=== PATIENT | female | born 1960 | race Caucasian/White ===

== ENCOUNTER 2023-01-15 15:40 | Observation (INO) | payer BC ==
[2023-01-15] MEDS ORDERED: Adenosine 12 MG/4 ML SDV IVPUSH ONE ×2 (15:43→15:44)
[2023-01-15] MEDS ORDERED: Sodium Chloride 0.9% 1,000 ML IV ONE (15:44)
[2023-01-15] MEDS ORDERED: Metoprolol Tartrate 5 MG/5 ML SDV IVPUSH ONE ×2 (15:52→16:43)
[2023-01-15] MEDS ORDERED: Metoprolol Tartrate 5 MG/5 ML SDV ONE (15:53)
[2023-01-15 16:05] LABS: ANION GAP 16.8 mmol/L (5-15); CHLORIDE,CL 102 mmol/L (98-107); ESTIMATED GFR 87 mL/min (>=60); SODIUM,NA 140 mmol/L (136-145)
[2023-01-15] MEDS: Sodium Chloride 0.9% 10 ML Syringe FLUSH PRN (16:52)
[2023-01-15] MEDS ORDERED: Acetaminophen 325 MG Tab PO PRN (17:52)
[2023-01-15] MEDS ORDERED: ALPRAZolam 0.25 MG Tab PO PRN (18:04)
[2023-01-15] MEDS ORDERED: Ibuprofen 200 MG Tab PO PRN (18:04)
[2023-01-15] MEDS: Metoprolol Tartrate 25 MG Tab PO SCH ×2 (18:31→20:46)
[2023-01-15] MEDS ORDERED: ESTRADIOL 1 MG PO SCH (21:00)
[2023-01-16 07:25] LABS: ANION GAP 11.3 mmol/L (5-15)
[2023-01-16] MEDS: Metoprolol Tartrate 25 MG Tab PO SCH (08:02)
[2023-01-16] MEDS: Sodium Chloride 0.9% 10 ML Syringe FLUSH PRN (08:06)
[2023-01-16] MEDS ORDERED: FLUOXETINE 10 MG PO SCH (09:00)
[2023-01-16] MEDS ORDERED: ESTRADIOL 1 MG PO SCH (09:00)
[2023-01-16] MEDS ORDERED: Metoprolol Tartrate 50 MG Tab PO ONE (10:08)
[2023-01-16] MEDS ORDERED: Metoprolol Tartrate 25 MG Tab PO ONE (11:04)
[2023-01-16] MEDS ORDERED: Metoprolol Tartrate 25 MG Tab PO SCH (21:00)
== END 2023-01-16 11:18 | disposition home or self-care (01) ==
LOC: KA.ED 15:40 → KA.MS 17:04 → UNDOADMOB 17:04 → UNDODISOB 01-16 11:18
PROVIDERS: ADMIT Nurse Practitioner; ATTEND Nurse Practitioner Family
DX: I47.1 Supraventricular tachycardia (principal); R00.0 Tachycardia, unspecified; I10 Essential (primary) hypertension; E78.1 Pure hyperglyceridemia; K76.0 Fatty (change of) liver, not elsewhere classified; K31.7 Polyp of stomach and duodenum; F41.9 Anxiety disorder, unspecified; E78.00 Pure hypercholesterolemia, unspecified; F32.A Depression, unspecified; Z79.899 Other long term (current) drug therapy; Z98.890 Other specified postprocedural states
CPT/HCPCS: 36415; 71045; 80053; 83735; 83880; 84484; 85025; 93005; 93010; 96361; 96374; 96375; 96376; 99284; 99285; A9270; G0378; J0153; J3490; J7030